=== PATIENT | male | born 1995 | race American Indian/Alaskan Native ===

== ENCOUNTER 2016-09-13 15:50 | Emergency (ER) | payer SELFPAY ==
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
--- NOTE | 2016-09-13 20:20 | XRay Report ---
FINAL REPORT PROCEDURE: XR HAND 3 RT TECHNIQUE: Right hand radiographs, AP and lateral views. CPT 20535 HISTORY: RIGHT HAND INJURY / SWELLING / PAIN COMPARISON: No prior studies are available for comparison. FINDINGS: Fracture (s) and/or Dislocation(s): There are fractures of the 4th and 5th metacarpal bones. 5th metacarpal fracture is impacted and angulated in the volar direction.. Alignment: Normal . Joint space(s): Normal . Soft tissues: There is soft tissue swelling of the dorsal aspect of the hand.. Bone mineralization: Normal . Foreign bodies: None . IMPRESSION: There are fractures of the 4th and 5th metacarpal bones. 5th metacarpal fracture is impacted and angulated in the volar direction.. .
[2016-09-13] MEDS ORDERED: NORCO 7.5/325 PO ONE (20:36)
[2016-09-13 22:28] VITALS: BP 135/82
== END 2016-09-13 22:00 | disposition home or self-care (01) ==
LOC: ED 15:50
DX: S62.304A Unspecified fracture of fourth metacarpal bone, right hand, initial encounter for closed fracture (principal); S62.306A Unspecified fracture of fifth metacarpal bone, right hand, initial encounter for closed fracture; I10 Essential (primary) hypertension; W22.8XXA Striking against or struck by other objects, initial encounter; Y93.89 Activity, other specified; Y99.8 Other external cause status; Y92.89 Other specified places as the place of occurrence of the external cause

== ENCOUNTER 2016-10-31 14:58 | Emergency (ER) | payer SELFPAY ==
--- NOTE | 2016-10-31 16:33 | Emergency Department Report ---
Entered by SUNIL GRANGER, acting as scribe for RASHMI MURPHY PA. Chief Complaint: Neck Pain/Injury Stated Complaint: SEVERE NECK PAIN/CHEST PAIN /MED REFILL Time Seen by Provider: 10/31/16 16:16 - HPI History of Present Illness: Pt c/o intermittent mid chest pain that began 2 weeks ago. Pt also c/o neck pain , which he describes as tight in quality. Reports SOB. Denies nausea and vomiting. PMHx of HTN and renal failure. Notes compliancy with bp medication. Denies recent travel and PSHx. - ROS Review of Systems: All systems are negative unless stated in HPI above. - Exam Vital Signs: Vital Signs 10/31/16 15:45 Temperature 98.4 F Pulse Rate 81 Respiratory 18 Rate Blood Pressure 124/84 O2 Sat by Pulse 100 Oximetry Physical Exam: General: 21 y/o male that is well nourished, well developed, nontoxic in appearance, and in no acute distress Cardiovascular: Regular rate and rhythm Respiratory: Clear to auscultation bilaterally, no rhonchi, wheezes, or rales. Neck: Supple. FROM. MSE screening note: Focused history and physical exam performed. Due to findings the following was ordered: ED Medical Decision Making - Medical Decision Making Patient was seen by provider in triage area. ED Disposition for MSE Condition: Stable This documentation as recorded by the scribe,SUNIL GRANGER,accurately reflects the service I personally performed and the decisions made by ,RASHMI MURPHY PA.
[2016-10-31 17:15] LABS: Eosinophils % (Auto) 6.4 % (0.0-4.3); Hematocrit 40.8 % (35.5-45.6); Hemoglobin 13.9 gm/dl (11.8-15.2); Mean Corpuscular HGB Conc 34 % (32-34); Mean Corpuscular Hemoglobin 29 pg (28-32); Mean Corpuscular Volume 86 fl (84-94); Platelet Count 257 K/mm3 (140-440); Red Blood Count 4.76 M/mm3 (3.65-5.03); Red Cell Distribution Width 12.9 % (13.2-15.2)
[2016-10-31 17:30] LABS: Creatine Kinase MB 1.7 ng/mL (0.0-4.0)
[2016-10-31 17:31] LABS: Anion Gap 18 mmol/L; BUN/Creatinine Ratio 12.22; Blood Urea Nitrogen 11 mg/dL (9-20); Calcium 9.4 mg/dL (8.4-10.2); Carbon Dioxide 26 mmol/L (22-30); Chloride 97.9 mmol/L (98-107); Creatine Kinase 534 units/L (55-170); Glucose 113 mg/dL (75-100); Lipase 56 units/L (13-60); Potassium 4.2 mmol/L (3.6-5.0); Sodium 138 mmol/L (137-145)
[2016-11-01 00:52] VITALS: BP 139/89
[2016-11-01] MEDS ORDERED: NACL 0.9% 1000 ML 1,000 ML IV ONE (01:23)
--- NOTE | 2016-11-01 01:26 | XRay Report ---
FINAL REPORT PROCEDURE: XR SPINE CERVICAL 2-3V TECHNIQUE: Cervical spine radiographs, AP, lateral, and open-mouth odontoid views. CPT 98932 HISTORY: neck pain COMPARISON: No prior studies are available for comparison. FINDINGS: Prevertebral soft tissues: Normal . Alignment: Normal . Vertebral body heights/Disk spaces: Normal . Fracture(s): None . Facets: Normal . Bone mineralization: Normal . IMPRESSION: Normal Examination
--- NOTE | 2016-11-01 01:27 | XRay Report ---
FINAL REPORT PROCEDURE: XR CHEST ROUTINE 2V TECHNIQUE: PA and lateral chest radiographs were obtained. CPT 20312 HISTORY: chest pain COMPARISON: No prior studies are available for comparison. FINDINGS: Heart: Normal. Mediastinum/Vessels: Normal. Lungs/Pleural space: Normal. Bony thorax: There is a slight right convex lower thoracic curvature. Other: IMPRESSION: There is no evidence of an acute cardiopulmonary process.
--- NOTE | 2016-11-01 02:31 | Emergency Department Report ---
HPI - General Chief Complaint: Neck Pain/Injury Time Seen by Provider: 11/01/16 01:56 - HPI HPI: This patient here complaining of right-sided neck pain and also having aching to his chest which has resolved along with shortness of breath. He said this happened today but since he's been in the emergency room it has resolved. He denies any chest pain or shortness of breath or neck pain. He reports that it has happened in the past. And it comes and goes. Denies any nausea or vomiting. Patient has a history of high blood pressure diagnosed 13 and asthma. His blood pressure is stable. He said he stayed in a Tylenol for his blood pressure. He reports when he got up this morning and his neck was really stiff at the right side but now it's better. Denies any history of heart disease or heart attack. Reports that he had recently had acute renal insufficiency but it has resolved. Denies any nausea or vomiting. Denies any fever or chills. Denies Eyes any coughing. I notice from previous visit patient had rhabdomyolysis in the past with acute renal insufficiency which has resolved. ED Past Medical Hx - Past Medical History Previous Medical History?: Yes Hx Hypertension: Yes (dx at age 13) Hx Congestive Heart Failure: No Hx Diabetes: No Hx Renal Disease: Yes (recently had episode of acute renal insufficiency) Hx Asthma: No Hx COPD: No Hx HIV: No Additional medical history: TMJ - Surgical History Past Surgical History?: Yes Additional Surgical History: Sinus - Family History Family history: hypertension - Social History Smoking Status: Never Smoker Substance Use Type: None - Medications Home Medications: Home Medications Medication Instructions Recorded Confirmed Last Taken Type Atenolol [Tenormin] 50 mg PO DAILY #30 tab 09/13/16 Unknown Rx HYDROcodone/APAP 5-325 [[place] 1 each PO Q6HR PRN #12 tablet 09/13/16 Unknown Rx 5/325] ED Review of Systems ROS: Stated complaint: SEVERE NECK PAIN/CHEST PAIN /MED REFILL Other details as noted in HPI Comment: All other systems reviewed and negative Constitutional: denies: chills, fever, weakness Eyes: denies: vision change ENT: denies: ear pain, throat pain, congestion Respiratory: no symptoms reported Cardiovascular: chest pain (resolved). denies: palpitations (resolved), dyspnea on exertion, orthopnea, edema, syncope Gastrointestinal: denies: abdominal pain, nausea, vomiting, diarrhea Musculoskeletal: myalgia. denies: back pain, joint swelling, arthralgia Skin: denies: rash Neurological: denies: headache, weakness, numbness, paresthesias, confusion, abnormal gait, vertigo Physical Exam - Physical Exam Vital Signs: Vital Signs 10/31/16 11/01/16 15:45 00:51 Temperature 98.4 F Pulse Rate 81 75 Respiratory 18 18 Rate Blood Pressure 124/84 Blood Pressure 139/89 [Left] O2 Sat by Pulse 100 98 Oximetry General: This is a 21-year-old male well-nourished well-developed in no acute distress. Physical Exam: Head: Normocephalic atraumatic Mouth: Moist, no pharyngeal exudate or erythema. Uvula is midline and oral airway is patent. No facial swelling. No peritonsillar abscesses. Neck: Supple, no C-spine tenderness, no tracheal deviation. Nontender to palpate. no adenopathyBilateral otitis nontender to palpate Abdomen: Soft, nontender to palpate in all quadrants, normal bowel sounds in all quadrant and negative CVA tenderness bilaterally. Back: No vertebral or paraspinal tenderness. No saddle anesthesia. Patient able to ambulate without any difficulties. Negative SLR bilaterally. Neurological: GCS of 15, alert and oriented 3. Speech is clear and fluid. Normal gait. No motor or sensory deficit. Normal reflexes. No facial drooping. No pronator drift and negative Romberg. Eyes: Bilateral pupils equal and reactive to light, bilateral EOM intact. Bilateral sclera and conjunctiva without injection. Normal accommodation. Lungs: Clear to auscultate bilaterally no rhonchi wheezes or rales. Normal work of breathing . no Chest wall tenderness. extremity; No CCE. +2 pulses. No neurovascular compromise Cardiovascular: S1-S2, regular rate rhythm. No murmurs. No JVD, upper liver refill is less than 3 seconds Skin: clean Dry and intact no rash no lesions Psych: Normal mood and behavior ED Course Vital Signs 10/31/16 11/01/16 15:45 00:51 Temperature 98.4 F Pulse Rate 81 75 Respiratory 18 18 Rate Blood Pressure 124/84 Blood Pressure 139/89 [Left] O2 Sat by Pulse 100 98 Oximetry - Reevaluation(s) Reevaluation #1: 11/01/16 03:06 Patient stable throughout ED course and his right chest pain and right neck pain has resolved before I had seen him. CK was elevated so he was given 1 L normal saline. ED Medical Decision Making - Lab Data Result diagrams: 10/31/16 17:00 10/31/16 17:00 Lab Results 10/31/16 10/31/16 Range/Units 17:00 17:00 WBC 6.0 (4.5-11.0) K/mm3 RBC 4.76 (3.65-5.03) M/mm3 Hgb 13.9 (11.8-15.2) gm/dl Hct 40.8 (35.5-45.6) % MCV 86 (84-94) fl MCH 29 (28-32) pg MCHC 34 (32-34) % RDW 12.9 L (13.2-15.2) % Plt Count 257 (140-440) K/mm3 Lymph % (Auto) 40.0 H (13.4-35.0) % Darke % (Auto) 7.7 H (0.0-7.3) % Eos % (Auto) 6.4 H (0.0-4.3) % Baso % (Auto) 1.0 (0.0-1.8) % Lymph # 2.4 (1.2-5.4) K/mm3 Darke # 0.5 (0.0-0.8) K/mm3 Eos # 0.4 (0.0-0.4) K/mm3 Baso # 0.1 (0.0-0.1) K/mm3 Seg Neutrophils % 44.9 (40.0-70.0) % Seg Neutrophils # 2.7 (1.8-7.7) K/mm3 Sodium 138 (137-145) mmol/L Potassium 4.2 (3.6-5.0) mmol/L Chloride 97.9 L (98-107) mmol/L Carbon Dioxide 26 (22-30) mmol/L Anion Gap 18 mmol/L BUN 11 (9-20) mg/dL Creatinine 0.9 (0.8-1.5) mg/dL Estimated GFR > 60 ml/min BUN/Creatinine Ratio 12.22 % Glucose 113 H (75-100) mg/dL Calcium 9.4 (8.4-10.2) mg/dL Total Creatine Kinase 534 H (55-170) units/L CK-MB (CK-2) 1.7 (0.0-4.0) ng/mL CK-MB (CK-2) Rel Index 0.3 (0-4) Troponin T < 0.010 (0.00-0.029) ng/mL Lipase 56 (13-60) units/L - EKG Data -: EKG Interpreted by Me (by attending physician) EKG shows normal: sinus rhythm (sinus rhythm with sinus arrhythmia at 75 bpm) Rate: normal - EKG Data Interpretation: no acute changes, nonspecific ST-T wave ron - Radiology Data Radiology results: report reviewed Chest x-ray revealed no acute cardiopulmonary processes X-rays C-spine reveal normal exam. - Medical Decision Making ED course: PT here complaining of right chest pain and right neck pain that started ongoing on and off for a week and reported that he was having some shortness of breath.Upon, evaluated patient, he said that his chest pain has resolved and he is no longer having neck pain or shortness of breath. I discussed the patient that his chest x-ray and x-ray of his neck was normal, Also discussed with them that his EKG was within normal limits and there are no acute findings. One of the lab results with patient and discussed with him that his labs are stable and a component of labs shows minimal enlargement which represents musculoskeletal breakdown that is not related to his heart. Patient given IV fluids 1 L in emergency room and he does have a primary care physician so I discussed with him that he needs to follow-up with his primary care physician in the morning to call to schedule an appointment for follow-up visit to see him know later then 11/02/2016.I discussed with them if he has recurrent chest pain he can return to the emergency room. He voiced understanding of discharge instruction and treatment plan and discharged home in stable condition to follow-up with primary care. I also instructed patient that I will give him a information and data architect analyst for follow-up but he may need to be referred from his primary care physician. Critical care attestation.: If time is entered above; I have spent that time in minutes in the direct care of this critically ill patient, excluding procedure time. ED Disposition Clinical Impression: Muscle spasms of neck, Atypical chest pain, Musculoskeletal pain Disposition: DISCHARGED TO HOME OR SELFCARE Is pt being admited?: No Does the pt Need Aspirin: No Condition: Stable Instructions: Chest Pain (ED), Musculoskeletal Pain (ED), Muscle Spasm (ED) Additional Instructions: Please increase your fluid intake and do not spend any prolonged time in the heat. Follow up with her primary care physician as instructed. Follow-up with information and data architect analyst as instructed. If chest pain returns, please return to the emergency room STEPHEN. Referrals: PRIMARY MD AUSTIN [Primary Care Provider] - 11/02/16 LUISA ALEMAN MD [Staff Physician] - 2-3 Days [facility] [Outside] - 11/02/16 Forms: Work/School Release Form(ED)
== END 2016-11-01 03:31 | disposition home or self-care (01) ==
LOC: ED 14:58
DX: M62.838 Other muscle spasm (principal); R07.89 Other chest pain; M79.1 Myalgia; I10 Essential (primary) hypertension
CPT/HCPCS: 36415; 71020; 72040; 80048; 82550; 82553; 83690; 84484; 85025; 93005; 93010; 96360; 99284; J7030

== ENCOUNTER 2016-12-28 03:04 | Emergency (ER) | payer SELFPAY ==
[2016-12-28 03:19] VITALS: BP 119/76
== END 2016-12-28 05:30 | disposition left against medical advice (07) ==
LOC: ED 03:04
DX: Z76.0 Encounter for issue of repeat prescription (principal); Z53.21 Procedure and treatment not carried out due to patient leaving prior to being seen by health care provider

== ENCOUNTER 2017-05-31 02:31 | Emergency (ER) | payer SELFPAY ==
[2017-05-31 02:50] VITALS: BP 129/86
== END 2017-05-31 02:50 | disposition left against medical advice (07) ==
LOC: ED 02:31
DX: Z53.21 Procedure and treatment not carried out due to patient leaving prior to being seen by health care provider (principal)

== ENCOUNTER 2018-06-23 15:11 | Emergency (ER) | payer SELFPAY ==
[2018-06-23 15:29] VITALS: BP 148/94
--- NOTE | 2018-06-23 16:49 | Emergency Department Report ---
ED General Adult HPI - General Chief complaint: Medical Clearance Stated complaint: HYPERTENSION Time Seen by Provider: 06/23/18 15:54 Source: patient Mode of arrival: Ambulatory Limitations: No Limitations - History of Present Illness Initial comments: Mr. Phelps is a healthy 22-year-old male with history of hypertension. He does not have a primary physician. He also had a lapse in health insurance coverage. His health care insurance will resume this month. Consequently he needs refill of losartan and atenolol. He is currently symptom-free. No physical symptoms. No current illness. - Related Data Previous Rx's Medication Instructions Recorded Last Taken Type Losartan [Cozaar] 50 mg PO QDAY #30 tablet 11/01/16 Unknown Rx Atenolol 50 mg PO DAILY 90 Days #90 tablet 06/23/18 Unknown Rx Losartan [Cozaar] 50 mg PO QDAY 90 Days #90 tablet 06/23/18 Unknown Rx Allergies Allergy/AdvReac Type Severity Reaction Status Date / Time hydrochlorothiazide Allergy Dizziness Verified 06/23/18 15:29 ED Review of Systems ROS: Stated complaint: HYPERTENSION Other details as noted in HPI Constitutional: denies: fever, malaise Respiratory: denies: cough Cardiovascular: denies: chest pain ED Past Medical Hx - Past Medical History Hx Hypertension: Yes (dx at age 13) Hx Congestive Heart Failure: No Hx Diabetes: No Hx Renal Disease: Yes (recently had episode of acute renal insufficiency) Hx Asthma: No Hx COPD: No Hx HIV: No Additional medical history: TMJ - Surgical History Past Surgical History?: Yes Additional Surgical History: Sinus - Social History Smoking Status: Never Smoker Substance Use Type: None - Medications Home Medications: Home Medications Medication Instructions Recorded Confirmed Last Taken Type Losartan [Cozaar] 50 mg PO QDAY #30 tablet 11/01/16 Unknown Rx Atenolol 50 mg PO DAILY 90 Days #90 tablet 06/23/18 Unknown Rx Losartan [Cozaar] 50 mg PO QDAY 90 Days #90 tablet 06/23/18 Unknown Rx ED Physical Exam - General Limitations: No Limitations General appearance: alert, in no apparent distress - Head Head exam: Present: atraumatic, normocephalic - Respiratory Respiratory exam: Absent: respiratory distress - Neurological Exam Neurological exam: Present: alert, oriented X3 - Psychiatric Psychiatric exam: Present: normal affect, normal mood - Skin Skin exam: Present: normal color ED Course Vital Signs 06/23/18 15:26 Temperature 97.4 F L Pulse Rate 67 Respiratory 16 Rate Blood Pressure 148/94 O2 Sat by Pulse 100 Oximetry ED Medical Decision Making - Medical Decision Making Medication refill for mildly elevated blood pressure with history of hypertension. Provided 90 day prescription for both losartan and atenolol. Critical care attestation.: If time is entered above; I have spent that time in minutes in the direct care of this critically ill patient, excluding procedure time. ED Disposition Clinical Impression: Medication refill, Hypertension Disposition: DC-01 TO HOME OR SELFCARE Is pt being admited?: No Does the pt Need Aspirin: No Condition: Stable Instructions: Hypertension (ED) Prescriptions: Atenolol 50 mg PO DAILY 90 Days #90 tablet Losartan [Cozaar] 50 mg PO QDAY 90 Days #90 tablet Referrals: [facility] [Outside] - 3-5 Days
== END 2018-06-23 16:56 | disposition home or self-care (01) ==
LOC: ED 15:11
DX: I10 Essential (primary) hypertension (principal); Z76.0 Encounter for issue of repeat prescription; Z87.448 Personal history of other diseases of urinary system; Z88.8 Allergy status to other drugs, medicaments and biological substances
CPT/HCPCS: 99282

== ENCOUNTER 2018-07-15 00:34 | Emergency (ER) | payer SELFPAY ==
[2018-07-15 02:16] LABS: Hematocrit 38.9 % (35.5-45.6); Mean Corpuscular HGB Conc 34 % (32-34); Mean Corpuscular Volume 87 fl (84-94); Platelet Count 225 K/mm3 (140-440); Red Blood Count 4.45 M/mm3 (3.65-5.03); Red Cell Distribution Width 13.3 % (13.2-15.2)
[2018-07-15 02:32] LABS: Creatine Kinase MB 2.1 ng/mL (0.0-4.0)
[2018-07-15 02:33] LABS: BUN/Creatinine Ratio 11; Blood Urea Nitrogen 10 mg/dL (9-20); Calcium 8.8 mg/dL (8.4-10.2); Hemolysis Index 11
[2018-07-15] MEDS ORDERED: K-DUR PO ONE (03:29)
--- NOTE | 2018-07-15 03:42 | Emergency Department Report ---
HPI - General Chief Complaint: High BP - HPI HPI: 22-year-old -[place] male presents to the emergency department with complaint of elevated blood pressure. The patient was at work around 10:30 PM last night when he checked his blood pressure and found it to be 210/109. The patient had decided to check his blood pressure as he had a twinge of chest pain at that time that has since resolved. The patient does have a history of hypertension for which he has been dealing with since he was about 13 years old. Patient says that he takes atenolol and losartan but admits to medication noncompliance for the past 3 days. However he did take one of the Cozaar earlier in the day. Currently the patient is asymptomatic. He denies any tobacco or illicit drug use. No recent travel or sick contacts at home. He does not have a primary care physician. ED Past Medical Hx - Past Medical History Previous Medical History?: Yes Hx Hypertension: Yes (dx at age 13) Hx Congestive Heart Failure: No Hx Diabetes: No Hx Renal Disease: Yes (recently had episode of acute renal insufficiency) Hx Asthma: No Hx COPD: No Hx HIV: No Additional medical history: TMJ - Surgical History Past Surgical History?: Yes Additional Surgical History: Sinus - Social History Smoking Status: Never Smoker - Medications Home Medications: Home Medications Medication Instructions Recorded Confirmed Last Taken Type RX: Losartan [Cozaar] 50 mg PO QDAY #30 tablet 11/01/16 Unknown Rx RX: Atenolol 50 mg PO DAILY 90 Days #90 tablet 06/23/18 Unknown Rx RX: Losartan [Cozaar] 50 mg PO QDAY 90 Days #90 tablet 06/23/18 Unknown Rx ED Review of Systems ROS: Stated complaint: HIGH BP Other details as noted in HPI Comment: All other systems reviewed and negative Constitutional: denies: chills, fever Eyes: denies: eye pain, vision change ENT: denies: ear pain, throat pain Respiratory: denies: cough, shortness of breath Cardiovascular: denies: palpitations, edema Gastrointestinal: denies: abdominal pain, vomiting Genitourinary: denies: dysuria, discharge Musculoskeletal: denies: back pain, arthralgia Skin: denies: rash, lesions Neurological: denies: headache, weakness Physical Exam - Physical Exam Vital Signs: Vital Signs 07/15/18 01:29 Temperature 98.6 F Pulse Rate 64 Respiratory 18 Rate Blood Pressure 140/86 O2 Sat by Pulse 98 Oximetry Physical Exam: GENERAL: The patient is well-developed well-nourished. HEENT: Normocephalic. Atraumatic. Patient has moist mucous membranes. EYES: Extraocular motions are intact. NECK: Supple. Trachea is midline. CHEST/LUNGS: Clear to auscultation. There is no respiratory distress noted. HEART/CARDIOVASCULAR: Regular. There is no tachycardia. There is no obvious murmur. ABDOMEN: Abdomen is soft, nontender. Patient has normal bowel sounds. There is no abdominal distention. SKIN: Skin is warm and dry. NEURO: The patient is awake, alert, and oriented. The patient is cooperative. The patient has no focal neurologic deficits. The patient has normal speech. MUSCULOSKELETAL: There is no tenderness or deformity. There is no limitation range of motion. There is no evidence of acute injury. ED Course Vital Signs 07/15/18 01:29 Temperature 98.6 F Pulse Rate 64 Respiratory 18 Rate Blood Pressure 140/86 O2 Sat by Pulse 98 Oximetry ED Medical Decision Making - Lab Data Result diagrams: 07/15/18 02:03 07/15/18 02:03 - EKG Data -: EKG Interpreted by Ia EKG shows normal: sinus rhythm, axis, intervals, QRS complexes, ST-T waves Rate: normal - EKG Data When compared to previous EKG there are: previous EKG unavailable Interpretation: normal EKG - Medical Decision Making Patient presented with a complaint of elevated blood pressure. He had some short and transient chest pain about 4 or 5 hours prior to presentation. EKG is normal without any ST elevation PR, ischemia or dysrhythmia. Patient's labs are unremarkable including CBC, metabolic panel and a troponin. The patient did not receive any antihypertensive medication and his blood pressure has come down to a normal level. There has been no return of any chest pain or any com plaints. The patient appears safe for discharge home at this time. He has been given a referral for primary care physicians in the area and instructed to take his blood pressure medications compliantly. He will return to the ER with any return or worsening of his symptoms or any acute distress. Critical Care Time: No Critical care attestation.: If time is entered above; I have spent that time in minutes in the direct care of this critically ill patient, excluding procedure time. ED Disposition Clinical Impression: Hypokalemia Hypertension Qualifiers: Hypertension type: essential hypertension Qualified Code(s): I10 - Essential (primary) hypertension Disposition: TO HOME OR SELFCARE Is pt being admited?: No Condition: Stable Instructions: Hypokalemia (ED), Hypertension (ED) Additional Instructions: Please follow up with a primary care physician. Continue taking your blood pressure medications as prescribed. Return to the emergency department with any return of your chest pain, uncontrolled blood pressure, or with any acute distress. Referrals: GM COYLE MD [Primary Care Provider] - 3-5 Days [facility] [Outside] - 3-5 Days Time of Disposition: 04:12 GARCIA score - Garcia Score Age > 65: (0) No Aspirin use within the Past 7 Days: (0) No 3 or more CAD Risk Factors: (0) No 2 or more Angina events in past 24 hrs: (0) No Known CAD with more than 50% Stenosis: (0) No Elevated Cardiac Markers: (0) No ST Deviation Greater than 0.5mm: (0) No
[2018-07-15 15:00] VITALS: BP 117/67
== END 2018-07-15 04:31 | disposition home or self-care (01) ==
LOC: ED 00:34
DX: E87.6 Hypokalemia (principal); I10 Essential (primary) hypertension; Z79.899 Other long term (current) drug therapy; Z88.8 Allergy status to other drugs, medicaments and biological substances
CPT/HCPCS: 36415; 80048; 82550; 82553; 84484; 85027; 93005; 93010; 99282